=== PATIENT | male | born 1955 | race Caucasian/White ===

== ENCOUNTER 2021-04-26 12:03 | Outpatient (CLI) | payer MEDICARE ==
--- NOTE | 2021-04-26 13:10 | XRAY Report ---
PROCEDURE: Knee 3 View LT INDICATIONS: PX IN LT KNEE TECHNIQUE: 3 views of the left knee(s) were acquired. COMPARISON: None. FINDINGS: Bones: No fractures or dislocations. Moderate tricompartmental osteoarthritis is seen. No suspiciou s bony lesions. Soft tissues: No joint effusion. No suspicious soft tissue calcifications. IMPRESSION: Moderate tricompartmental osteoarthritis. No left knee fracture or dislocation. No signi ficant joint effusion. Reviewed by: Nick Verma MD on 04/26/2021 1:08 PM PDT Approved by: Nikc Verma MD on 04/26/2021 1:08 PM PDT Station ID: [id number]
== END 2021-04-26 12:04 | disposition home or self-care (01) ==
LOC: DI.S 12:03
PROVIDERS: ATTEND Registered Nurse
DX: M25.562 Pain in left knee (principal); M17.12 Unilateral primary osteoarthritis, left knee

== ENCOUNTER 2023-09-09 11:56 | Day surgery (SDC) | payer MEDICARE ==
[2023-09-09] MEDS ORDERED: LACTATED RINGERS 1,000 ML IV ONE (12:41)
--- NOTE | 2023-09-09 12:53 | ANESTHESIA ---
Pre-Anesthesia VS, & Labs - Diagnosis screening exam - Procedure colonoscopy Vital Signs: Temp Pulse Resp BP Pulse Ox O2 Flow Rate 36.6 C 88 18 110/70 96 09/09/23 12:22 09/09/23 12:22 09/09/23 12:22 09/09/23 12:22 09/09/23 12:22 Height: 5 ft 7 in Weight (kg): 71 kg Body Mass Index: 24.5 BMI Classification: Normal - NPO >8 hours Home Medications and Allergies Home Medications: Ambulatory Orders No Known Home Medications 09/08/23 No Known Home Medications 09/08/23 Allergies/Adverse Reactions: Allergies Allergy/AdvReac Type Severity Reaction Status Date / Time No Known Drug Allergies Allergy Verified 09/08/23 15:29 Anes History & Medical History - Anesthetic History Anesthesia Complications: reports: No previous complications - Medical History Cardiovascular: reports: None Pulmonary: reports: None Gastrointestinal: reports: None Urinary: reports: None Neuro: reports: None Musculoskeletal: reports: None Endocrine/Autoimmune: reports: None Skin: reports: None Smoking Status: Never smoker Psychosocial: reports: No issues indicated History of Cancer?: No - Surgical History Orthopedic: reports: Carpal Tunnel surgery Exam General: Alert, Oriented x3, Cooperative, No acute distress Dental: WNL Mouth Openin Fingerbreadth Neck Mobility: Normal Mallampati classification: II Thyromental Distance: 4-6 cm Mental/Cognitive Status: Alert/Oriented X3, Normal for patient Plan Anesthesia Type: General, Total IV Consent for Procedure(s) Verified and Reviewed: Yes Code Status: Attempt Resuscitation ASA classification: 1-Healthy patient Is this case an emergency?: No
[2023-09-09] MEDS ORDERED: PROPOFOL 500 MG/50 ML 500 MG/50 ML VIAL ONE (13:08)
[2023-09-09] MEDS ORDERED: LACTATED RINGERS 400 ML IV ONE (13:39)
[2023-09-09 13:55] VITALS: BP 104/67; O2SAT 99
== END 2023-09-09 11:57 | disposition home or self-care (01) ==
LOC: SDS 11:56
PROVIDERS: ATTEND Surgery
DX: Z12.11 Encounter for screening for malignant neoplasm of colon (principal); K64.1 Second degree hemorrhoids
CPT/HCPCS: G0121; J7120